=== PATIENT | female | born 1935 | race Native Hawaiian/Other Pacific Islander ===

== ENCOUNTER 2018-05-13 09:41 | Day surgery (SDC) | payer OTHER ==
[2018-05-13] MEDS ORDERED: Iodixanol 320 MG/ML 200 ML BOTTLE IV ONE (09:51)
[2018-05-13] MEDS ORDERED: Iohexol 350mgl/ml 50 ML ONE (09:51)
[2018-05-13] MEDS ORDERED: Lidocaine 2% PF (10 ml) Amp ONE ×2 (09:51→10:23)
[2018-05-13] MEDS ORDERED: Nitroglycerin 50mg in D5W 50 MG/250 ML BOTTLE IV ONE (09:52)
[2018-05-13] MEDS ORDERED: Midazolam 2 MG/2 ML VIAL ONE (10:09)
[2018-05-13] MEDS ORDERED: Sodium Chloride 0.45% 1,000 ML IV SCH (11:15)
[2018-05-13 12:17] VITALS: TEMP 98.7
[2018-05-13 12:18] VITALS: PULSE 75
--- NOTE | 2018-05-13 12:55 | CARD ---
APPROVED REPORT Date of service: 05/13/2018 EKG Measurement Heart [id number] CT P55 [id number] <Conclusion> Pacemaker Rythm.
[2018-05-13 14:48] VITALS: RESP 20
[2018-05-13 15:21] VITALS: BP 124/69
--- NOTE | 2018-05-20 01:53 | CARDCATH ---
PROCEDURE DATE: 05/13/2018 PROCEDURES: Percutaneous coronary intervention and drug-eluting stent placement of the right coronary artery. CLINICAL INDICATIONS: 1. Chest pain. 2. Non-ST elevation myocardial infarction. 3. Coronary artery diseases. 4. Complete heart block, on transvenous pacemaker. 5. Diabetes. 6. Hypertension. 7. Hyperlipidemia. 8. Sxunj-ze-cgyxqzm diastolic heart failure. REFERRING PHYSICIAN: Dr. Gilbert Iqbal PERFORMING PHYSICIAN: Santos Quintanilla MD DESCRIPTION OF PROCEDURE: After informed consent, the patient was prepped and draped in the usual sterile fashion. A 2% lidocaine was given in the right groin for local anesthesia. The patient was premedicated with aspirin, Plavix, and IV heparin. ACT was maintained about 250 throughout the procedure. A 6-Macanese JR4 diagnostic catheter engaged into right coronary artery. Contrast injected and right coronary angiogram was done. Mid right coronary artery 99% stenosis noted. There is ADALBERTO 2 flow distal to the stenosis. The lesion is threaded with Runthrough coronary wire. Predilated with 2.5 x 12 Compliant balloon. The entire mid RCA lesion stented with 2.5 x 28 Resolute Portillo drug-eluting stent. Excellent final angiographic results with brisk ADALBERTO-3 flow noted. IMPRESSION: 1. Critical right coronary artery disease. 2. Successful coronary intervention and drug-eluting stent placement of the right coronary artery. Recommend post PCI management. Recommend dual-antiplatelet therapy for 1 year. Santos Quintanilla MD
== END 2018-05-13 15:26 | disposition home or self-care (01) ==
LOC: CATH 09:41 → MERGE 09:41 → CATH 15:26
PROVIDERS: ATTEND Internal Medicine Cardiovascular Disease
DX: I21.4 Non-ST elevation (NSTEMI) myocardial infarction (principal); I25.10 Atherosclerotic heart disease of native coronary artery without angina pectoris; I11.0 Hypertensive heart disease with heart failure; I50.33 Acute on chronic diastolic (congestive) heart failure; E11.9 Type 2 diabetes mellitus without complications; E78.5 Hyperlipidemia, unspecified; Z95.0 Presence of cardiac pacemaker
CPT/HCPCS: 85175; 93005; 93454; 99152; 99153; C1725; C1760; C1769 ×2; C1874; C1887; C2629; C9600; J1644 ×2; J2250; J3010; J7030; Q9966; Q9967